=== PATIENT | female | born 1975 | race Caucasian/White ===

== ENCOUNTER 2024-07-28 15:20 | Outpatient (REF) | payer BC, SELFPAY ==
--- OUTSIDE RECORDS SUMMARY | 2024-08-04 12:21 | XMS_ITS | Clinical Summary ---
Author Organization [facility] Address [address] [place] [address] Care Team Providers Care Associate Quality Engineer Name Role Phone Alexus NORIEGA MD, Ector Maxwell Primary Care Provider +1- [phone] Allergies No known active allergies Medications Medication Sig Dispensed Refills Start Date End Date Status sertraline (ZOLOFT) 100 MG tablet 0 01/25/2018 Active meloxicam (MOBIC) 15 MG tablet Take 15 mg by mouth daily. 1 01/02/2018 Active Hospital, Clinic, or Other Facility Administered Medication Ordered Dose Route Frequency Start Date End Date Status lidocaine (PF) (XYLOCAINE-MPF) 1 % injection 10 mgIndications:Acute medial meniscal tear, right, initial encounter 10 mg IX Once 03/06/2018 Active methylPREDNISolone acetate (DEPO-MEDROL) injection 40 mgIndications:Acute medial meniscal tear, right, initial encounter 40 mg IX Once 03/06/2018 Active Active Problems Problem Noted Date Diagnosed Date Acute medial meniscal tear, right, initial encou nter 03/06/2018 Family History Medical History Relation Name Comments Diabetes Brother Relation Name Status Comments Brother Social History Tobacco Use Types Packs/Day Years Used Date Smoking Tobacco: Never Assessed Sex and Gender Information Value Date Recorded Sex Assigned at Not on file Gender Identity Not on file Sexual Orientation Not on file Last Filed Vital Signs Vital Sign Reading Time Taken Comments Blood Pressure - - Pulse - - Temperature - - Respiratory Rate - - Oxygen Saturation - - Inhaled Oxygen Concentration - - Weight 86.2 kg (190 lb) 03/06/2018 1:28 PM EDT Height 165.1 cm (5' 5 ) 03/06/2018 1:28 PM EDT Body Mass Index 31.62 03/06/2018 1:28 PM EDT Plan of Treatment Health Maintenance Due Date Last Done Comments Hepatitis B Vaccines (1 of 3 - 3-dose series) 1976 Hepatitis C Screening 1976 COVID-19 Vaccine (#1) 1976 Depression Screening 1988 Preventative Health Evaluation 01/30/1994 DTap / Tdap / Td (1 - Tdap) 01/30/1995 Cervical Cancer Screening (P ap Smear) 01/30/1997 Colon Cancer Screening (Colonoscopy) 01/30/2021 Influenza Vaccine (#1) 2024 Pneumococcal Vaccine Aged Out No long er eligible based on patient's age to complete this topic RSV Ped < 20 months Aged Out No longe r eligible based on patient's age to complete this topic Care Teams Associate Quality Engineer Relationship Specialty Start Date End Date Ector Vaughan II, MD [address] [place] [phone] PCP - General Internal Medicine 02/09/18
[2024-08-08 13:25] LABS: H Pylori Breath Test Negative (Negative)
== END 2024-07-28 15:21 | disposition home or self-care (01) ==
LOC: HO.LNP 15:20
PROVIDERS: Visit Provider Nurse Practitioner Family
DX: K21.9 Gastro-esophageal reflux disease without esophagitis (principal)
CPT/HCPCS: 83013

== ENCOUNTER 2024-10-13 08:15 | Outpatient (REF) | payer BC, SELFPAY ==
--- NOTE | ~2024-10-13 | FL_ITS ---
EXAMINATION: XR FLUOROSCOPY UPPER GI SERIES CLINICAL INFORMATION: Gastroesophageal reflux disease without esophagitis. Remote history of gastric bypass surgery. Patient complaining of dysphagia, episodic. Vague history of esophageal dilatation. COMPARISON: No prior available. TECHNIQUE: Fluoroscopic air contrast upper GI examination was performed utilizing standard techniques with thin and thick barium and effervescent granules. Numerous spot images were obtained. Several fluoroscopic image hold cine sequences were also obtained. FINDINGS: UPPER GI SERIES: Lateral cine images of the oropharynx and hypopharynx demonstrate normal swallow mechanism with normal epiglottic inversion and soft palate elevation. No laryngeal penetration, glottic or subglottic aspiration identified. No nasopharyngeal reflux present. Hypopharyngeal structures appear normal without evidence of mass or diverticulum. There was no significant cricopharyngeal achalasia. Dual and single contrast images of the esophagus demonstrate normal caliber, contour, and mucosal pattern. No evidence of stricture, mass, or ulcerations identified. Esophageal peristalsis was normal. No evidence of hiatus hernia identified. No significant gastroesophageal reflux was seen during the course of the examination and on reflux views. Dual contrast and single contrast images of the stomach demonstrate prior gastric bypass with gastrojejunostomy and partial gastrectomy. The gastric pouch demonstrates normal contour. No evidence of mass or gross ulceration. There is mild thickening of the mucosal areae gastricae. Contrast freely passed into the gastric antrum and duodenal bulb without delay. No reflux of contrast into the excluded duodenum or gastric remnant. Single and air-contrast images of the gastrojejunostomy demonstrates normal appearance. Proximal small bowel demonstrates mild prominence of the mucosal folds, and there was notable rapid transit of contrast through the small bowel. There was dilution of contrast noted in the distal small bowel, and suggestively mildly thickened folds of the ileum. Findings suggest the possibility of malabsorption disorder. FLUOROSCOPY TIME: 2 minutes, 41 seconds Number of Spot Images:13 Number of cines obtained: 7 DOSE AREA PRODUCT: 3632 mGy-m2. FL/FL upper GI w air w Ba Swallow IMPRESSION: 1. Gastric bypass. The gastric pouch demonstrates mild thickening of the areae gastricae, which could represent gastritis. Normal-appearing gastrojejunostomy. 2. Esophagus is normal in caliber and course without focal narrowing, ulcer, or mucosal abnormality. 3. No definite gastroesophageal reflux identified during the examination. 4. No definite hiatus hernia present. 5. Somewhat rapid transit of contrast through the small bowel with distal dilution. Subjectively thickened folds of the duodenum, jejunum, and ileum. The possibility of malabsorption disorder should at be considered. Electronically signed by: Jude Bourne MD 10/13/2024 09:47 AM EDT RP
--- OUTSIDE RECORDS SUMMARY | 2024-10-13 08:26 | XMS_ITS | Clinical Summary ---
Author Organization [facility] Address [address] [place] [id number] Care Team Providers Care Dean Of Admissions Name Role Phone Alexus NORIEGA MD, Ector Maxwell Primary Care Provider +1- [phone] Allergies No known active allergies Medications Medication [...] age to complete this topic Care Teams Dean Of Admissions Relationship Specialty Start Date End Date Ector Vaughan II, MD [address] [place] [phone] PCP - General Internal Medicine 02/09/18
== END 2024-10-13 08:16 | disposition home or self-care (01) ==
LOC: HO.XRAY 08:15
PROVIDERS: PCP Student in an Organized Health Care Education/Training Program; Visit Provider Nurse Practitioner Family
DX: K21.9 Gastro-esophageal reflux disease without esophagitis (principal)
CPT/HCPCS: 74246

== ENCOUNTER → 2024-10-13 08:20 | Outpatient (BNV) | payer BC, SELFPAY | PROVIDERS: PCP Student in an Organized Health Care Education/Training Program; Visit Provider Radiology Diagnostic Radiology | DX: K21.9 Gastro-esophageal reflux disease without esophagitis (principal); Z98.84 Bariatric surgery status | CPT/HCPCS: 74246 ==

== ENCOUNTER 2024-11-05 14:24 | Outpatient (AMB) | payer BC, SELFPAY ==
--- NOTE | 2024-11-05 14:25 | MHC.OFFVIS ---
Vital Signs 11/05/24 14:26 Height 5 ft 5 in Weight 195 lb BMI 32.4 BP 126/88 Blood Pressure Location Rt brachial Position Sitting Pulse 72 Pulse Source Pulse Oximeter Pulse Oximetry (%) 98 Oxygen Delivery Method Room Air Intake Visit Reasons: 3 mos FUV. Review lab results Intake Note: ESTABLISHED PATIENT for GERD and IBS mgmt. Imaging and labs done. Some scheduled for upcoming appt. Vitamin E outstanding? Chief Complaint; C/O persistence of epigastric pain, dysphagia, and loose stools. Pt reports that reflux has improved with PPI. No additional sx or concerns at this time. Foreign Food Specialty Cook Required: No Accompanied by: Self / Same As Patient Allergies No Known Allergies Allergy (Verified 11/05/24 14:32) HPI HPI 3 mos FUV. Review lab results: Details: LAST VISIT: Muscle pain GERD (gastroesophageal reflux disease) Postprandial epigastric pain Postprandial abdominal bloating Postprandial diarrhea Plan H pylori testing, will treat empirically if positive. Patient will start taking pantoprazole daily. Avoid dietary triggers and late night snacking. Postprandial diarrhea will rule out inflammatory bowel disease. Patient will also have vitamin-D, a, E levels. History of gastric bypass in 2014. Possible malabsorption issue due to the surgery. Will send patient for upper GI series with barium swallow. Reports muscle pain. Will check magnesium. Epigastric pain postprandially, lipase, rule out chronic pancreatitis. Will also rule out celiac, will send her for ultrasound. Patient will be sent for upper endoscopy and colonoscopy. Message sent to surgical schedulers to book upper endoscopy and colonoscopy with patient. She will return in 3 months so we can re-evaluate for change of symptoms. Discussed with patient low FODMAP diet. Avoid dietary triggers. List of food recommended as well as list of food to avoid given to patient. Patient will try fiber with probiotic. Patient is agreeable to current plan of care and verbalizes understanding of instructions. She was given the opportunity to ask questions and all questions answered. ? Thank you for allowing me to participate in her care Orders Orders H Pylori Breath Test 08/04/24 K21.9 TSH reflex Free T4 07/30/24 K59.00 Vitamin D 25-OH (D2 and D3) 07/30/24 E55.9 Lipase 07/30/24 R10.9 Lipid Panel 07/30/24 I25.10 Vitamin A 07/30/24 M79.10 Vitamin E 07/30/24 M62.838 Transglutaminase IgA 07/30/24 R10.9 Vitamin B12 and Folate 07/30/24 R19.7 Liver Panel 07/30/24 R74.01 C Reactive Protein 07/30/24 K58.9 US abdomen complete 07/28/24 R10.9 FL upper GI w Ba Swallow 07/28/24 K21.9 Magnesium 07/30/24 M79.10 Vitamin B3 (Niacin) 07/30/24 M79.10 Medications New pantoprazole 20 mg PO DAILY 30 tabs 3RF TODAY'S VISIT Patient is here today for follow-up and to discuss upper GI series with barium swallow as well as lab results. Patient reports that she is feeling better now that she is taking pantoprazole, however she still has occasional abdominal bloating. Patient reports she is taking pantoprazole at night time. Patient denies any dyspepsia, dysphagia or odynophagia. Denies melena, hematochezia, unintentional weight loss or ribbon like stools. All of her lab work was normal except for elevation in her liver enzymes. Patient does report that she has been eating more than usual. Patient also reports that the sizes are bigger than what she was supposed to eat. Overall patient reports that she is feeling little better. Denies any nausea or vomiting. Denies any epigastric pain postprandially except when she eats larger meals. [facility] Medical History Prediabetes Premature ovarian failure ROLA (obstructive sleep apnea) HTN (hypertension) Melanoma GERD (gastroesophageal reflux disease) External hemorrhoid Anxiety and depression ETOHism Surgical History Hx of endoscopy H/O colonoscopy History of melanoma excision (~2011) H/O arthroscopy of right knee (~1995) History of esophagogastroduodenoscopy (EGD) (~2013) History of resection of rib (~2022) Review of Systems Const Denies weight gain and Denies weight loss ENT Reports no additional complaints, Denies dysphagia and Denies odynophagia Card Reports no additional complaints Resp Reports no additional complaints GI Reports abdominal pain, Denies belching, Denies melena, Reports bloating, Denies change in bowel habits, Reports constipation (Occasional), Denies dysphagia, Denies excessive flatus, Denies dyspepsia, Reports heartburn (Improved), Denies diarrhea, Denies loose stools, Denies nausea, Denies odynophagia and Denies vomiting Reports no additional complaints Musc Reports no additional complaints Neuro Reports no additional complaints Psych Reports no additional complaints Endo Reports no additional complaints Physical Exam Vital Signs: Last Vital Signs Pulse 72 11/05/24 14:26 BP 126/88 11/05/24 14:26 Pulse Ox 98 11/05/24 14:26 Oxygen Delivery Method Room Air 11/05/24 14:26 BMI result Body Mass Index 32.4 Const General: healthy appearing, comfortable and no acute distress Nutritional Appearance: obese Orientation/consciousness: patient oriented x3 Resp Effort & Inspection: normal respiratory effort, able to speak in complete sentences, no tracheal deviation and symmetric chest movement Auscultation: clear to auscultation bilaterally Cardio Rate: regular rate GI Inspection: Yes normal to inspection, No distended and Yes obesity Palpation (GI): Soft to palpation, not firm, nontender and No hepatosplenomegaly present Auscultation: normal bowel sounds General: Yes no CVA tenderness Back/Spine/Pelvis Back: no CVA tenderness Skin General skin exam: elasticity normal, turgor normal and dry skin Neuro General: patient oriented x3 Psych Appearance: grossly normal Mental Status: mental status grossly normal Results Reviewed Results Reviewed: UPPER GI BARIUM SWALLOW IMPRESSION: 1. Gastric bypass. The gastric pouch demonstrates mild thickening of the areae gastricae, which could represent gastritis. Normal-appearing gastrojejunostomy. 2. Esophagus is normal in caliber and course without focal narrowing, ulcer, or mucosal abnormality. 3. No definite gastroesophageal reflux identified during the examination. 4. No definite hiatus hernia present. 5. Somewhat rapid transit of contrast through the small bowel with distal dilution. Subjectively thickened folds of the duodenum, jejunum, and ileum. The possibility of malabsorption disorder should at be considered. Laboratory Tests 07/28/24 07/30/24 15:20 13:55 Magnesium 2.0 Total Bilirubin 0.8 Direct Bilirubin 0.3 AST 40 H ALT 36 H Alkaline Phosphatase 70 C-Reactive Protein 0.58 H Lipase 11 Vitamin A 59 Nicotinic Acid <20 Nicotinamide 23 Vitamin B12 556 25-OH Vitamin D Total 36 25-Hydroxy Vitamin D3 36 Folate 14.6 TSH 1.27 Tiss Transglutamin IgA <1.0 H. pylori Breath Test Negative Assessment & Plan Assessment & Plan (1) GERD (gastroesophageal reflux disease): Code(s): K21.9 - Gastro-esophageal reflux disease without esophagitis Category: Medical Qualifiers: Esophagitis presence: esophagitis presence not specified Qualified Code(s): K21.9 - Gastro-esophageal reflux disease without esophagitis (2) Postprandial epigastric pain: Code(s): R10.13 - Epigastric pain (3) Postprandial abdominal bloating: Code(s): R14.0 - Abdominal distension (gaseous) (4) Postprandial diarrhea: Code(s): K52.9 - Noninfective gastroenteritis and colitis, unspecified Plan Patient will continue taking pantoprazole, however was recommended to switch it to morning time and eat breakfast no later than half an hour after. Avoid dietary triggers late night snacking. Recommendation was made for patient to eat smaller meals and more often. Tried to follow to the diet that was previously recommended by her bariatric surgeon. Patient will follow-up in 6 months and we will send her for upper endoscopy and colonoscopy. Patient is agreeable to this plan and verbalizes understanding of instructions. She was given the opportunity to ask questions and all questions answered. Thank you for allowing me to participate in her care Coding Level of Care Code Est Pt Level 4 (70883) Complex EM visit Add On G2211 Diagnoses Gastroesophageal reflux disease, unspecified whether esophagitis present K21.9 Esophagitis presence: esophagitis presence not specified Postprandial epigastric pain R10.13 Postprandial abdominal bloating R14.0 Postprandial diarrhea K52.9 Time Spent (min) 35 Comment 25 minute spent with patient and additional 10 minutes spent reviewing her records
[2024-11-05 14:26] VITALS: BP 126/88; PULSE 72; O2SAT 98; BMI 32.4
--- OUTSIDE RECORDS SUMMARY | 2024-11-05 15:04 | XMS_ITS | Clinical Summary ---
Author Organization [facility] Address [address] [place] [id number] Care Team Providers Care Sander Portable Machine Name Role Phone Alexus NORIEGA MD, Ector Maxwell Primary Care Provider +1- [phone] Allergies No known active allergies Medications Medication [...] age to complete this topic Care Teams Sander Portable Machine Relationship Specialty Start Date End Date Ector Vaughan II, MD [address] [place] [phone] PCP - General Internal Medicine 02/09/18
== END 2024-11-05 15:04 | disposition home or self-care (01) ==
LOC: HO.HGI 14:24
PROVIDERS: PCP Family Medicine; Visit Provider Nurse Practitioner Family
DX: K21.9 Gastro-esophageal reflux disease without esophagitis (principal); R10.13 Epigastric pain; R14.0 Abdominal distension (gaseous); K52.9 Noninfective gastroenteritis and colitis, unspecified
CPT/HCPCS: 99214